=== PATIENT | female | born 1990 | race Caucasian/White ===

== ENCOUNTER 2022-07-17 16:36 | Emergency (ER) | payer BC, SELFPAY ==
--- NOTE | 2022-07-17 16:26 | ECG_ITS ---
APPROVED REPORT Exam: Resting ECG HR:87 bpm ECG Measurements Heart Rate 87 AXES MS 136 P 68 QRSd 86 QRS 81 QT 353 T 31 QTc 398 Conclusion SINUS RHYTHM NORMAL ECG UNCONFIRMED REPORT Electronically signed by : Lloyd Newell MD 07/18/2022 11:21:43
[2022-07-17 16:36] VITALS: BP 113/73; PULSE 93; RESP 18; TEMP 36.9; O2SAT 100; BMI 39.4
[2022-07-17 17:01] VITALS: BMI 39.4
--- NOTE | 2022-07-17 17:01 | XR_ITS ---
PROCEDURE INFORMATION: Exam: XR Chest Exam date and time: 07/17/2022 5:04 PM Age: 31 years old Clinical indication: Pain; Chest pressure; Additional info: Chest pain TECHNIQUE: Imaging protocol: Radiologic exam of the chest. Views: 2 views. COMPARISON: No relevant prior studies available. FINDINGS: Lungs: No acute pulmonary findings. No consolidation. Pulmonary vessels do not appear congested. A possible 5 mm granuloma projected over the posterior left 8th rib in the lower left lung, only seen on the frontal view. Pleural spaces: Unremarkable. No significant pleural effusion. No pneumothorax. Heart/Mediastinum: The cardiac silhouette is normal. Bones/joints: There are spinal degenerative changes, with multilevel disc narrrowing and spondylosis. IMPRESSION: No acute findings.
[2022-07-17 17:45] LABS: Basophils # 0.1 K/mm3 (0-0.2); Basophils % 0.8 % (0.1-2.0); Eosinophils # 0.1 K/mm3 (0.0-0.4); Hematocrit 44.8 % (37.0-47.0); Hemoglobin 14.2 g/dL (12.2-16.2); Lymphocytes # 1.6 K/mm3 (0.7-4.5); Lymphocytes % 28.1 % (10-50); Mean Corpuscular HGB Conc 31.7 g/dL (31.8-35.4); Mean Corpuscular Hemoglobin 29.1 pg (27.0-31.2); Mean Corpuscular Volume 91.8 fl (81-99); Mean Platelet Volume 9.4 fl (7.4-10.4); Monocytes # 0.3 K/mm3 (0.1-1.0); Neutrophils # 3.7 K/mm3 (1.8-7.8); Neutrophils % 64.1 % (37.0-80.0); Platelet Count 258 K/mm3 (142-424); Red Blood Count 4.87 M/mm3 (4.20-5.40); Red Cell Distribution Width 13.8 % (11.5-17.5); White Blood Count 5.7 K/mm3 (4.8-10.8)
[2022-07-17 17:57] LABS: Blood Urea Nitrogen 13 mg/dl (7-17); Calcium 9.7 mg/dl (8.4-10.2); Carbon Dioxide 28 mmol/L (22.0-30.0); Chloride 107 mmol/L (98-107); Creatinine Clearance Estimated 169 mL/min (50-200); Estimated Glomerular Filt Rate 84 ml/min (>60); GFR (African American) 102 ML/MIN (>60); Glucose 73 mg/dl (74-100); Sodium 142 mmol/L (136-145)
[2022-07-17 18:15] LABS: Troponin I < 0.01 ng/ml (0.00-0.034)
--- NOTE | 2022-07-17 18:16 | HMH.EDGENADL ---
Discharge Plan Disposition Patient Disposition: Home, Self-Care Prescriptions Prescriptions: No Action No Known Home Medications Referrals Follow up/Referrals: Provider,Referral, MD [Referring] - See instructions Activity Restrictions/Add. Instructions Additional Instructions/Restrictions: At this time was felt you are safe to be discharged home. If new or worsening symptoms please do not hesitate to return the emergency department. Please establish care with a family doctor of [facility]. Clinical Impressions Clinical Impression: Chest pain Discharge ED Provider: Andre Peter General Adult HPI General Chief complaint: Chest Pain Stated complaint: chest pain Time Seen by Provider: 07/17/22 18:10 Mode of Arrival: Ambulatory Source of Information: Patient Limitations: No Limitations Description of Symptoms (Recalled from ER Triage Doc. by RN): c/o chest pain and jaw pain that started last night and heavy chest today History of Present Illness HPI narrative: Patient is a 31-year-old female with no pertinent past medical history presents emergency department for evaluation of chest tightness and jaw pain. Onset was acute, jaw pain on her right jaw occurred while she was at work yesterday evening which has intermittently subsided. She late this afternoon had substernal chest tightness worse with deep inspiration caused her to present for evaluation. Patient is on estrogen-containing oral contraceptives, menstrual period started yesterday. No other acute complaints at this time. Related Data Home Medications Medication Instructions Recorded Confirmed No Known Home Medications 07/17/22 07/17/22 Allergies Allergy/AdvReac Type Severity Reaction Status Date / Time No Known Allergies Allergy Verified 12/18/17 18:21 [facility] Surgical History (Updated 07/17/22 @ 19:35 by Irene Eric RN) History of section Hx of tonsillectomy Social History Smoking Status: Never smoker alcohol intake: current current occupational status: employed ROS Obtained: Yes All systems reviewed & no additional complaints except as documented Physical Exam General General appearance: alert and in no apparent distress Head Head exam: atraumatic and normocephalic Eye Eye exam: Present PERRL and EOMI ENT ENT exam: Present mucous membranes moist Neck Neck exam: Present normal inspection Chest Chest inspection: Present normal inspection and symmetric chest wall rise Respiratory Respiratory exam: Present normal lung sounds bilaterally; Absent respiratory distress Cardiovascular Cardiovascular exam: Present regular rate and normal rhythm Abdominal Exam Abdominal exam: Present soft; Absent tenderness Extremities Exam Extremities exam: Present normal inspection Neurological Exam Neurological exam: Present alert and oriented X3 Psychiatric Psychiatric exam: Present normal affect Skin Skin exam: Present warm and dry Medical Decision Making Abel Inquiry Pt receiving controlled substance: No Vital Signs: 07/17/22 16:36 07/17/22 19:12 07/17/22 19:28 Temperature 98.5 F Temperature Source Oral Pulse Rate 69 73 Pulse Rate [Left Radial] 93 H Respiratory Rate 18 Blood Pressure 112/59 L Blood Pressure [Right Arm] 113/73 Blood Pressure Mean [Right Arm] 86 Blood Pressure Source [Right Arm] Automatic Cuff Blood Pressure Position [Right Arm] Sitting 02 Sat by Pulse Oximetry 100 87 L Oxygen Delivery Method Room Air 07/17/22 20:42 07/17/22 20:42 Temperature 98.5 F Temperature Source Oral Pulse Rate 83 Pulse Rate [Left Radial] Respiratory Rate 16 Blood Pressure 118/72 Blood Pressure [Right Arm] Blood Pressure Mean [Right Arm] Blood Pressure Source [Right Arm] Blood Pressure Position [Right Arm] 02 Sat by Pulse Oximetry Oxygen Delivery Method Room Air Room Air Lab Data Lab Results 07/17/22 16:13: D-Dimer 0.43 08
[2022-07-17 18:39] LABS: D-Dimer 0.43 ug/mL (0.0-0.5)
[2022-07-17 19:12] VITALS: BP 112/59; PULSE 69; O2SAT 87
[2022-07-17 19:28] VITALS: PULSE 73
[2022-07-17 20:42] VITALS: BP 118/72; PULSE 83; RESP 16; TEMP 36.9; O2SAT 98
[2022-07-17 20:58] LABS: Troponin I < 0.01 ng/ml (0.00-0.034)
== END 2022-07-17 21:00 | disposition home or self-care (01) ==
PROVIDERS: Emergency Provider Emergency Medicine; PCP Nurse Practitioner Family
DX: R07.89 Other chest pain (principal); R68.84 Jaw pain
CPT/HCPCS: 71046; 80048; 84484; 85025; 85378; 93005; 96360; 99284

== ENCOUNTER 2023-08-30 08:13 | Emergency (ER) | payer BC, SELFPAY ==
[2023-08-30 08:20] VITALS: BP 133/83; PULSE 101; RESP 21; TEMP 36.8; O2SAT 97; BMI 44.8
--- NOTE | 2023-08-30 08:33 | EXP.UTC ---
Discharge Plan Disposition Patient Disposition: Home, Self-Care Condition: Good Prescriptions Prescriptions: New benzonatate 100 mg capsule 100 mg PO TID PRN (Reason: cough) Qty: 30 0RF methylprednisolone [Medrol (Silvio)] 4 mg tablets,dose pack See Rx Instructions .Route .COMPLEX 6 Days Qty: 21 0RF Rx Instructions: taper pack; amoxicillin-pot clavulanate 875-125 mg Tablet 1 tab PO Q12H Qty: 20 0RF fluticasone propionate [Flonase Allergy Relief] 50 mcg/actuation spray,suspension 1 spray intranasal DAILY Qty: 16 0RF Rx Instructions: administer into each nostril daily No Action levothyroxine 50 mcg tablet 50 mcg PO fluticasone propionate 50 mcg/actuation spray,suspension intranasal Elinest 0.3-30 mg-mcg tablet 1 tab PO Referrals Follow up/Referrals: Meir Mott APRN [Primary Care Provider] - See instructions Activity Restrictions/Add. Instructions Additional Instructions/Restrictions: *Monitor Temp, Over the counter Motrin or Tylenol as directed/as needed Tylenol every 4 hours and Motrin every 6 hours (as long as your family doctor has told you that you can take it) for fever or pain. and straight to ER if unable to lower temp less than 101.0 after medication given *Warm salt water gargles may help to soothe the throat *Throat Lozenges? *Warm fluids like tea with honey may help to soothe the throat? *Sleep elevated *Humidifier/Vaporizer *Flonase 2 sprays in each nostril daily but be aware that it may take 2-3 days before you notice improvement Take medication as prescribed Follow up IMMEDIATELY for new or worsening symptoms or no Noticeable improvement over the next 48-72 hours. 911 for difficulty breathing or swallowing Clinical Impressions Clinical Impression: Sinusitis Qualifiers: Sinusitis location: unspecified location Chronicity: unspecified Qualified Code(s): J32.9 - Chronic sinusitis, unspecified Instructions Patient Instructions: DI for Sinusitis, Sinusitis Discharge ED Provider: Franca Gutierrez [facility] General Stated complaint: congestion, bilateral ear pain, sinus pressure Mode of Arrival: Ambulatory Source of Information: Patient Limitations: No Limitations Time Seen by Provider: 08/30/23 08:33 Description of Symptoms (Recalled from Triage Doc. by RN): PATIENT C/O SINUS PRESSURE, CONGESTION, AND COUGH SINCE FRIDAY HEENT Symptoms (Recalled from RN notes): Yes Resp Symptoms (Recalled from RN notes): Yes Skin Symptoms (Recalled from RN notes): No MS Symptoms (Recalled from RN notes): No Functional Status (Recalled from RN notes): WNL History of Present Illness Provider Complaint: Patient states that she has been having sinus issues for several days that has continued to get worse States that on her sinus congestion got worse with cough and today she states that she is having pressure behind her eyes and in her cheeks that feels like she has weights in sinuses so this morning when she was not feeling any better she came in to get checked Related Data Home Medications Medication Instructions Recorded Confirmed fluticasone propionate 50 spray intranasal 12/04/22 12/04/22 mcg/actuation nasal spray,suspension levothyroxine 50 mcg tablet 50 mcg PO 12/04/22 12/04/22 norgestrel 0.3 mg-ethinyl 1 tab PO 12/04/22 12/04/22 estradiol 30 mcg tablet (Elinest) Previous Rx's Medication Instructions Recorded amoxicillin 875 mg-potassium 1 tab PO Q12H #20 tabs 08/30/23 clavulanate 125 mg tablet benzonatate 100 mg capsule 100 mg PO TID PRN cough #30 caps 08/30/23 fluticasone propionate 50 1 spray intranasal DAILY #16 grams 08/30/23 mcg/actuation nasal spray,suspension (Flonase Allergy Relief) methylprednisolone 4 mg tablets in See Rx Instructions .Route 08/30/23 a dose pack (Medrol (Silvio)) .COMPLEX 6 days #21 tabs Allergies Allergy/AdvReac Type Severity Reaction Status
[2023-08-30 08:41] VITALS: BP 133/83; PULSE 101; RESP 21; TEMP 36.8; O2SAT 97
[2023-08-30 08:42] LABS: UTC Strep Screen (Rapid) Positive (Negative)
== END 2023-08-30 08:44 | disposition home or self-care (01) ==
PROVIDERS: Emergency Provider Nurse Practitioner; PCP Nurse Practitioner Family
DX: J02.0 Streptococcal pharyngitis (principal); J01.90 Acute sinusitis, unspecified; E03.9 Hypothyroidism, unspecified
CPT/HCPCS: 87880; 99204; 99212; G0463

== ENCOUNTER 2024-09-19 09:29 | Emergency (ER) | payer BC, SELFPAY ==
--- NOTE | 2024-09-19 09:46 | ED_ITS ---
Discharge Plan Disposition Patient Disposition: Home, Self-Care Condition: Good Prescriptions Prescriptions: New azithromycin [Zithromax] 250 mg tablet 250 mg PO UD DOSE PK Qty: 6 0RF Rx Instructions: Take two (2) tablets today, then one (1) tablet days #2 thru #5 methylprednisolone 4 mg Tablets,Dose Pack 4 mg PO DIRECTED 6 Days Qty: 21 0RF Rx Instructions: Take 1 pack as directed for 6 days emxoaudjoguwlrt-yorofljto-OS [Bromfed DM] 2-30-10 mg/5 mL Syrup 5 ml PO Q6H PRN (Reason: Cough) Qty: 240 0RF guaifenesin [Mucinex] 600 mg tablet extended release 12hr 600 - 1,200 mg PO BIDP PRN (Reason: Congestion) Qty: 30 0RF No Action levothyroxine 50 mcg tablet 50 mcg PO DAILY Elinest 0.3-30 mg-mcg tablet 1 tab PO DAILY Referrals Follow up/Referrals: Meir Mott APRN [Primary Care Provider] - See instructions Activity Restrictions/Add. Instructions Additional Instructions/Restrictions: Drink plenty of fluids. Take tylenol or ibuprofen for pain or fever. Take the medications as directed. Follow up with your regular doctor. GO TO THE ER FOR ANY WORSENING SYMPTOMS Clinical Impressions Clinical Impression: Sinusitis Qualifiers: Sinusitis location: unspecified location Chronicity: unspecified Qualified Code(s): J32.9 - Chronic sinusitis, unspecified Instructions Patient Instructions: Sinusitis, DI for Sinusitis Print Language Print Language: Grenadian Discharge ED Provider: Alo Felton [facility] General Stated complaint: sore throat, cough, sinus pressure Time Seen by Provider: 09/19/24 09:45 Related Data Home Medications ?Medication ?Instructions ?Recorded ?Confirmed levothyroxine 50 mcg tablet 50 mcg PO DAILY 12/04/22 09/19/24 norgestrel 0.3 mg-ethinyl 1 tab PO DAILY 12/04/22 12/04/22 estradiol 30 mcg tablet (Elinest) Previous Rx's ?Medication ?Instructions ?Recorded azithromycin 250 mg tablet 250 mg PO UD DOSE PK #6 tabs 09/19/24 (Zithromax) npohfhhgoaqbmhe-mirtmvblloyqmox-WG 5 ml PO Q6H PRN Cough #240 mL 09/19/24 2 mg-30 mg-10 mg/5 mL oral syrup (Bromfed DM) guaifenesin 600 mg tablet, 600 - 1,200 mg (1 - 2 x 600 mg) PO 09/19/24 extended release 12 hr (Mucinex) BIDP PRN Congestion #30 tabs methylprednisolone 4 mg tablets in 4 mg PO DIRECTED 6 days #21 tabs 09/19/24 a dose pack Allergies Allergy/AdvReac Type Severity Reaction Status Date / Time No Known Allergies Allergy Verified 12/04/22 15:00 [facility] Disclaimer: The information contained in this section may have been updated after the patient was seen, as this information can be updated by other users. Medical History (Updated 09/19/24 @ 10:09 by Alo Felton APRN) Hypothyroid Thyroid nodule Surgical History Hx of tonsillectomy History of section Family History (Updated 12/04/22 @ 15:11 by ZHANE Pierson) Other Cancer Thyroid disorder Social History Smoking Status: Never smoker alcohol intake: current alcohol intake frequency: holidays/special occasions only current occupational status: employed Travel in the last 8 weeks: None ROS Obtained: Yes All systems reviewed & no additional complaints except as documented Constitutional Constitutional: Reports poor appetite Eyes Eyes: Reports system reviewed and no additional complaints, except as documented ENT Ears, Nose, Mouth, and Throat: Reports as per HPI Cardiovascular Cardiovascular: Reports system reviewed and no additional complaints, except as documented and Denies chest pain Respiratory Respiratory: Denies shortness of breath, Reports chest congestion, Reports cough, Denies stridor and Denies wheezing Gastrointestinal Gastrointestingal: Reports system reviewed and no additional complaints, except as documented; Denies abdominal pain, diarrhea or vomiting Musculoskeletal Musculoskeletal: Reports system reviewed and no additional complaints, except as documented and Denies arthralgias Integumentary/Breasts Skin/Breast: Reports system reviewed and no additional complaints, except as documented and Denies rash Neurologic Neurologic: Denies paresthesias Allergic/Immunologic Allergic/Immunologic: Denies wheezing Physical Exam General General appearance: alert and in no apparent distress Eye Eye exam: Present normal appearance, PERRL and EOMI ENT ENT exam: Present mucous membranes moist and normal external ear exam Expanded ENT Exam External ear exam: Present normal external inspection TM/Canal exam: Bilateral TM: erythema and bulging Nose exam: Absent sinus tenderness Nasal speculum exam: Bilateral: normal Mouth exam: Present normal external inspection; Absent drooling Teeth exam: Present normal inspection Throat exam: Present tonsillar erythema and tonsillomegaly Neck Neck exam: Present normal inspection, full ROM and trachea midline; Absent tenderness, lymphadenopathy or thyromegaly Chest Chest inspection: Present normal inspection and symmetric chest wall rise; Absent tenderness or rash Respiratory Respiratory exam: Present normal lung sounds bilaterally; Absent respiratory distress, wheezes, stridor or accessory muscle use Cardiovascular Cardiovascular exam: Present regular rate, normal rhythm and normal heart sounds Abdominal Exam Abdominal exam: Present soft; Absent distention, tenderness, guarding, rebound or rigidity Extremities Exam Extremities exam: Present normal inspection, full ROM and normal capillary refill; Absent tenderness or calf tenderness Back Exam Back exam: Present normal inspection and full ROM; Absent tenderness Neurological Exam Neurological exam: Present alert and oriented X3 Psychiatric Psychiatric exam: Present normal affect and normal mood Skin Skin exam: Present warm, dry, intact and normal color Lymphatic Lymphatic Findings: no adenopathy Medical Decision Making Medical Records Medical records reviewed: No I reviewed the patient's medical records. Screening: Per USPSTF and CDC recommendations, given the prevalence of disease in our region, it is our hospital?s policy to screen for HIV and viral Hepatitis for all patients aged 18 and over and those with ongoing risk factors. Abel Inquiry Pt receiving controlled substance: No
[2024-09-19 09:55] VITALS: BP 136/89; PULSE 69; RESP 18; TEMP 36.8; O2SAT 99; BMI 42.9
[2024-09-19 10:26] VITALS: BP 136/89; PULSE 69; RESP 18; TEMP 36.8
== END 2024-09-19 10:26 | disposition home or self-care (01) ==
PROVIDERS: Emergency Provider Nurse Practitioner Family; PCP Nurse Practitioner Family
DX: J32.9 Chronic sinusitis, unspecified (principal)
CPT/HCPCS: 99213; G0381